=== PATIENT | male | born 1955 | race Caucasian/White ===

== ENCOUNTER 2016-11-08 08:20 | Emergency (ER) | payer BC, OTHER ==
[2016-11-08 08:45] VITALS: BP 139/88; PULSE 51; TEMP 99.5; BMI 29.5
--- NOTE | 2016-11-08 09:13 | PDOC ---
History of Present Illness - General Chief Complaint: Cold Symptoms Stated Complaint: COUGH Time Seen by Provider: 11/08/16 08:46 - History of Present Illness Initial Comments: 11/08/16 09:06 Chief complaint: Cough History of present illness: Patient developed chest congestion and cough approximately one week ago, originally with subjective sensation of fever and large amount of green sputum. He began Augmentin at that time, and his symptoms have improved. He is coughing less and his sputum is now clear. However, he states that his , who is a physician, listened to his chest and heard rales at the bases. Review of systems: Denies headache, sore throat, earache, chest pain, shortness of breath, abdominal pain, nausea, vomiting, diarrhea, visual or focal neurologic symptoms, urinary tract symptoms. Past medical history: Atrial fibrillation, elevated blood pressure. 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 No tachypnea or dyspnea Afebrile, vital signs normal including normal blood pressure, temperature 99.5, respiratory rate 16 and unlabored, and oxygen saturation 96% on room air ENT clear Neck supple without bruit mass or nodes Chest clear with full breath sounds throughout bilaterally. No wheezes rales or rhonchi CV S1 and S2 normal without murmur rub or gallop pulses full and symmetric no JVD or edema 55 and regular. Abdomen benign Neurological intact Skin clear, no rash, adequate turgor and mucous membranes Extremities no CCE Impression: Most likely URI with cough, improving. Possible bronchitis or mild pneumonia Plan: Since the lungs are clear now, the cough is improving, the sputum is clear , and there is no chest pain or shortness of breath, patient advised to finish his course of Augmentin and rest, take adequate fluids, stay out of the cold. Return to ER or see primary physician if the cough worsens, sputum returns, and there is chest pain or shortness of breath. Fully ambulatory and in no distress upon discharge with his to follow up as directed Past History - Past Medical History Allergies/Adverse Reactions: Allergies Allergy/AdvReac Type Severity Reaction Status Date / Time No Known Allergies Allergy Verified 11/08/16 08:22 Home Medications: Ambulatory Orders Amox-Tr/K Cl [Augmentin - 875Mg Tablet] 1 tab PO BID 11/08/16 Clonidine HCl 0.9 mg PO TID 11/08/16 Ramipril 5 mg PO BID 11/08/16 Warfarin Sodium [Coumadin] 7.5 mg PO HS 11/08/16 Cardiac Disorders: Yes (ATRIAL FIB) HTN: Yes - Psycho/Social/Smoking Cessation Hx Anxiety: No Suicidal Ideation: No Smoking History: Never smoked Have you smoked in the past 12 months: No Information on smoking cessation initiated: No Hx Alcohol Use: No Drug/Substance Use Hx: No Substance Use Type: None *Physical Exam - Vital Signs Last Vital Signs Temp Pulse Resp BP Pulse Ox 99.5 F 51 L 16 139/88 96 11/08/16 08:37 11/08/16 08:37 11/08/16 08:37 11/08/16 08:37 11/08/16 08:37 *DC/Admit/Observation/Transfer Diagnosis at time of Disposition: Upper respiratory infection with cough and congestion - Discharge Dispostion Disposition: HOME Condition at time of disposition: Stable Admit: No - Patient Instructions Printed Discharge Instructions: DI for Viral Upper Respiratory Infection -- Adult, DI for Acute Bronchitis Additional Instructions: Rest, adequate fluid intake, avoid the cold. Return to ER or see primary physician if the cough becomes worse, or if there is shortness of breath, chest pain, or high fever.
== END 2016-11-08 09:32 | disposition home or self-care (01) ==
LOC: FER 08:20
DX: J06.9 Acute upper respiratory infection, unspecified (principal); R05 Cough; R09.89 Other specified symptoms and signs involving the circulatory and respiratory systems; I48.91 Unspecified atrial fibrillation; I10 Essential (primary) hypertension; Z79.01 Long term (current) use of anticoagulants
CPT/HCPCS: 99281-25

== ENCOUNTER 2019-12-01 07:59 | Emergency (ER) | payer BC, OTHER ==
--- NOTE | 2019-12-01 08:16 | PDOC ---
History of Present Illness - General Chief Complaint: Vomiting/Diarrhea Stated Complaint: DIARRHEA,DEHYDRATION Time Seen by Provider: 12/01/19 08:05 - History of Present Illness Initial Comments: 12/01/19 08:14 64yo M physician hx HTN, AF on xarelto, depression, hearing impairment presents to the ED with diarrhea x2 days. Initially NBNB N/V Weds into Th. Since yesterday, vomiting abated but persistent constant diarrhea, non bloody. No abd pain. Decreased PO but able to drink fluids. No fevers or chills. Has only been taking his xarelto, has not been taking BP meds or depakote. Feels dehydrated prompting ED visit. 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 No tx tried. Denies dizziness, headache, CP, SOB, urinary sxs, LE edema. Past History - Past Medical History Allergies/Adverse Reactions: Allergies Allergy/AdvReac Type Severity Reaction Status Date / Time No Known Allergies Allergy Verified 12/01/19 08:01 Home Medications: Ambulatory Orders Clonidine HCl 0.9 mg PO HS 11/08/16 Ramipril 10 mg PO BID 11/08/16 Amlodipine Besylate [Norvasc -] 10 mg PO DAILY 12/01/19 Ciprofloxacin HCl 500 mg PO ASDIR 12/01/19 Ciprofloxacin [Cipro (Restricted To Id)] 250 mg PO ONCE 12/01/19 Clonidine HCl 0.6 mg PO BID 12/01/19 Divalproex [Depakote -] 500 mg PO HS 12/01/19 Labetalol HCl [Normodyne -] 200 mg PO BID 12/01/19 Perphenazine 2 mg PO HS 12/01/19 Rivaroxaban [Xarelto -] 20 mg PO HS 12/01/19 Cardiac Disorders: Yes (ATRIAL FIB) HTN: Yes - Psycho Social/Smoking Cessation Hx Smoking History: Never smoked Have you smoked in the past 12 months: No Hx Alcohol Use: No Drug/Substance Use Hx: No Substance Use Type: None Review of Systems - Review of Systems Comments:: 12/01/19 09:05 GENERAL/CONSTITUTIONAL: No fever or chills. No weakness. HEAD, EYES, EARS, NOSE AND THROAT: No change in vision. No ear pain or discharge. No sore throat. GASTROINTESTINAL: +nausea, vomiting, diarrhea, no constipation. GENITOURINARY: No dysuria, frequency, or change in urination. CARDIOVASCULAR: No chest pain or shortness of breath. RESPIRATORY: No cough, wheezing, or hemoptysis. MUSCULOSKELETAL: No joint or muscle swelling or pain. No neck or back pain. SKIN: No rash NEUROLOGIC: No headache, vertigo, loss of consciousness, or change in strength/ sensation. ENDOCRINE: No increased thirst. No abnormal weight change. HEMATOLOGIC/LYMPHATIC: No anemia, easy bleeding, or history of blood clots. ALLERGIC/IMMUNOLOGIC: No hives or skin allergy. *Physical Exam - Physical Exam 12/01/19 09:05 GENERAL: Awake, alert, and fully oriented, in no acute distress. Delilah pleasant HEAD: No signs of trauma EYES: PERRLA, EOMI, sclera anicteric, conjunctiva clear ENT: Oropharynx clear without exudates. Dry MM NECK: Normal ROM, supple, no lymphadenopathy, JVD, or masses LUNGS: Breath sounds equal, clear to auscultation bilaterally. No wheezes, and no crackles HEART: Tachy, irregular, normal S1 and S2, no murmurs, rubs or gallops ABDOMEN: Soft, nontender, normoactive bowel sounds. No guarding, no rebound. No masses EXTREMITIES: Normal range of motion, no edema. No clubbing or cyanosis. No cords, erythema, or tenderness NEUROLOGICAL: Normal speech, cranial nerves intact, equal strength and sensation b/l SKIN: Warm, Dry, normal turgor, no rashes or lesions noted. Heart Score/ECG Review #1 12/01/19 09:06 Twelve-lead EKG was performed and reviewed by me. Atrial fibrillation with rapid ventricular response, rate 112. Normal axis. Wavy baseline but, no gross ST elevations or TWI ED Treatment Course - LABORATORY CBC & Chemistry Diagram: 12/01/19 08:35 12/01/19 08:35 Medical Decision Making - Medical Decision Making 12/01/19 09:07 64-year-old male presents emergency department with nausea vomiting and diarrhea , concern for dehydration. Of note, patient has not been taking any of his blood pressure medications. Vitals remarkable for tachycardia to 118, EKG in A. fib with rapid ventricular response. On exam, patient with dry mucous membranes. No abdominal tenderness to palpation. Plan will be to check labs for any metabolic disarray, hydrate with a liter of fluids, and likely start some of patient's blood pressure medications, specifically beta-jaqueline. Will reassess. 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 I answered all of the patient's questions. The patient was satisfied with the care received and felt comfortable with the discharge plan and treatment plan. The patient will call their primary care physician within 24 hours to arrange follow-up and will return to the Emergency Department with any new, persistent or worsening symptoms. Discharge - Discharge Information Problems reviewed: Yes Clinical Impression/Diagnosis: Diarrhea, Dehydration, Tachycardia, Gastroenteritis Condition: Improved Disposition: HOME - Admission No - Follow up/Referral Referrals: Andrea Fernandez MD [Primary Care Provider] - - Patient Discharge Instructions Patient Printed Discharge Instructions: DI for Dehydration -- Adult Additional Instructions: You presented today with dehydration We checked your bloodwork and found some of your electrolytes were low ( magnesium, calcium) We gave you some intravenous fluids for hydration. At home, continue to drink plenty of fluids such as gatorade, water to stay hydrated Take your home medications as prescribed Return to the emergency department if you have any new, worsening, or concerning symptoms It was a pleasure to take care of you today. We hope you feel better soon! - Post Discharge Activity
[2019-12-01 08:19] VITALS: BMI 35.2
[2019-12-01] MEDS ORDERED: SODIUM CHLORIDE 1,000 ML IV STA (08:21)
[2019-12-01 09:03] LABS: BASO % 0.2 % (0-2.0); EOS % 0.1 % (0-4.5); HEMATOCRIT 47.7 % (35.4-49); HEMOGLOBIN 15.6 GM/dl (11.7-16.9); LYMPH % 10.7 % (8-40); MCH 29.6 pg (25.7-33.7); MCHC 32.8 g/dl (32.0-35.9); MEAN CELL VOLUME 90.3 fl (80-96); MEAN PLT VOLUME 8.2 fl (7.5-11.1); PLATELET COUNT 195 K/MM3 (134-434); RBC 5.28 M/mm3 (4.00-5.60); RDW 13.2 % (11.9-15.9); WHITE BLOOD COUNT 12.6 K/mm3 (4.0-10.8)
[2019-12-01 09:06] LABS: INR 1.79 (0.82-1.09); PROTHROMBIN TIME (PATIENT) 19.8 SEC (10.2-13.0)
[2019-12-01 09:11] LABS: ALBUMIN 3.7 g/dl (3.4-5.0); BILIRUBIN,TOTAL 0.7 mg/dl (0.2-1); CREATININE 1.2 mg/dl (0.55-1.3); MAGNESIUM 1.4 mg/dL (1.8-2.4); POTASSIUM 3.5 mmol/L (3.5-5.1); TOT PROT 6.7 g/dl (6.4-8.2)
[2019-12-01] MEDS ORDERED: LABETALOL HCL 200 MG TABLET (FP) PO ONE (09:15)
[2019-12-01] MEDS ORDERED: LABETALOL HCL 200 MG TABLET (FP) ONE ×2 (09:17→09:20)
[2019-12-01] MEDS ORDERED: MAGNESIUM OXIDE 400 MG TABLET (FP) PO ONE (10:33)
[2019-12-01 10:36] LABS: EPITHELIAL CELLS RARE /hpf
[2019-12-01 10:37] LABS: URINE MUCUS 1+
[2019-12-01] MEDS ORDERED: cloNIDine HCL 0.1 MG TABLET PO ONE (11:37)
[2019-12-01] MEDS ORDERED: cloNIDine HCL 0.1 MG TABLET ONE (11:41)
[2019-12-01 13:17] VITALS: BP 121/89; PULSE 105; TEMP 98.5
--- NOTE | 2019-12-02 10:36 | EKG ---
Test Reason : Blood Pressure : / mmHG Vent. Rate : 112 BPM Atrial Rate : 105 BPM P-R Int : 000 ms QRS Dur : 080 ms QT Int : 316 ms P-R-T Axes : 000 004 -23 degrees QTc Int : 431 ms POOR DATA QUALITY, INTERPRETATION MAY BE ADVERSELY AFFECTED ATRIAL FIBRILLATION WITH RAPID VENTRICULAR RESPONSE NONSPECIFIC ST AND T WAVE ABNORMALITY ABNORMAL ECG NO PREVIOUS ECGS AVAILABLE Confirmed by PENELOPE URBINA MD ([id number]) on 12/02/2019 10:35:51 AM Referred By: Confirmed By:PENELOPE URBINA MD
== END 2019-12-01 13:57 | disposition home or self-care (01) ==
LOC: FER 07:59
PROC: 3E0337Z Introduction of Electrolytic and Water Balance Substance into Peripheral Vein, Percutaneous Approach (ICD-10-PCS; principal; 2019-12-01)
DX: R00.0 Tachycardia, unspecified (principal); K52.9 Noninfective gastroenteritis and colitis, unspecified; E86.0 Dehydration; F32.9 Major depressive disorder, single episode, unspecified; I10 Essential (primary) hypertension
CPT/HCPCS: 36415; 80053; 81003; 81015; 83735; 85025; 85610; 85730; 87086; 93005; 99284-25; J0735; J7030

== ENCOUNTER 2022-04-03 16:59 | Emergency (ER) | payer OTHER ==
[2022-04-03] MEDS ORDERED: ACETAMINOPHEN 325 MG TABLET (FP) PO ONE (17:30)
[2022-04-03 17:37] VITALS: TEMP 97.9; BMI 34.4
[2022-04-03] MEDS ORDERED: LACTATED RINGERS SOLUTION 1000 ML INFUS.BAG IV ONE (17:51)
[2022-04-03] MEDS ORDERED: METOCLOPRAMIDE HCL INJECTION 10 MG/2 ML VIAL IVPUSH ONE (17:51)
[2022-04-03] MEDS ORDERED: METOCLOPRAMIDE HCL INJECTION 10 MG/2 ML VIAL ONE (18:33)
[2022-04-03] MEDS ORDERED: ACETAMINOPHEN 325 MG TABLET (FP) ONE (18:33)
[2022-04-03 19:06] VITALS: BP 169/107; PULSE 64
[2022-04-03 19:14] LABS: HEMATOCRIT 47.2 % (35.4-49); HEMOGLOBIN 16.7 G/dL (11.7-16.9); MCH 30.3 pg (25.7-33.7); MCHC 35.3 g/dl (32.0-35.9); MEAN CELL VOLUME 85.9 fl (80-96); MEAN PLT VOLUME 8.7 fl (7.5-11.1); PLATELET COUNT 166.9 10^3/uL (134-434); RBC 5.49 10^6/uL (4.00-5.60); RDW 15.3 % (11.9-15.9); WHITE BLOOD COUNT 7.1 10^3/uL (4.0-10.8)
[2022-04-03 19:20] LABS: ALBUMIN 4.2 g/dl (3.4-5.0); BILIRUBIN,TOTAL 0.8 mg/dl (0.2-1); CALCIUM 9.1 mg/dl (8.5-10)
== END 2022-04-03 20:20 | disposition home or self-care (01) ==
LOC: FER 16:59
DX: I10 Essential (primary) hypertension (principal)
CPT/HCPCS: 36415; 71046-TC-FY; 80053; 84484; 85025; 93005; 99285-25; C9803-CS; U0003; U0005

== ENCOUNTER 2023-01-17 14:42 | Emergency (ER) | payer OTHER ==
[2023-01-17 14:57] VITALS: BP 119/79; PULSE 82; RESP 18; BMI 34.4
== END 2023-01-17 16:55 | disposition home or self-care (01) ==
LOC: FER 14:42
DX: S93.401A Sprain of unspecified ligament of right ankle, initial encounter (principal); W10.8XXA Fall (on) (from) other stairs and steps, initial encounter; Y93.01 Activity, walking, marching and hiking
CPT/HCPCS: 73590-TC-RT-FY; 73610-TC-RT-FY; 73630-TC-RT-FY; 99283-25

== ENCOUNTER 2023-01-20 22:40 | Emergency (ER) | payer OTHER ==
[2023-01-20 22:48] VITALS: BP 140/88; PULSE 72; RESP 18; TEMP 98.6; BMI 29.6
[2023-01-21 02:16] LABS: BASO % 0.3 % (0-2.0); EOS % 0.2 % (0-4.5); HEMATOCRIT 37.6 % (35.4-49); HEMOGLOBIN 12.9 GM/dL (11.7-16.9); LYMPH % 20.6 % (8-40); MCH 28.5 pg (25.7-33.7); MCHC 34.2 g/dl (32.0-35.9); MEAN CELL VOLUME 83.4 fl (80-96); MEAN PLT VOLUME 7.8 fl (7.5-11.1); MONO % 11.3 % (3.8-10.2); NEUT % 67.6 % (42.8-82.8); PLATELET COUNT 202 10^3/uL (134-434); RBC 4.51 M/mm3 (4.00-5.60); RDW 13.4 % (11.9-15.9); WHITE BLOOD COUNT 8.3 K/mm3 (4.0-10.0)
[2023-01-21 02:34] LABS: CHLORIDE 104 mmol/L (98-107); SODIUM 139 mmol/L (136-145)
[2023-01-21 02:37] LABS: ALBUMIN 2.8 g/dl (3.4-5.0); BLOOD UREA NITROGEN 22.7 mg/dL (7-18); CO2 27 mmol/L (21-32); GLUCOSE,RANDOM 113 mg/dL (74-106)
[2023-01-21 02:40] LABS: CREATININE 0.9 mg/dL (0.55-1.3); SGOT/AST 34 U/L (15-37); SGPT/ALT 29 U/L (13-61)
[2023-01-21 02:42] LABS: BILIRUBIN,TOTAL 0.9 mg/dL (0.2-1); LDH 178 U/L (87-246)
[2023-01-21 02:43] LABS: ALK PHOS 44 U/L (45-117)
[2023-01-21 03:21] LABS: ANION GAP 9 MMOL/L (8-16)
== END 2023-01-21 06:33 | disposition home or self-care (01) ==
LOC: FER 22:40
DX: B34.9 Viral infection, unspecified (principal)
CPT/HCPCS: 36415; 71045-TC-FY; 80053; 82550; 82553; 83605; 83615; 84436; 84443; 84479; 84484; 85025; 85651; 86038; 86140; 87040; 87086; 93005; 99285-25

== ENCOUNTER 2024-04-26 15:01 | Inpatient (IN) | payer OTHER ==
[2024-04-26] MEDS ORDERED: VANCOMYCIN 500 MG VIAL (RESTRICTED TO ID ONLY) ONE (15:36)
[2024-04-26] MEDS ORDERED: ACETAMINOPHEN INJECTION 100 ML IVPB ONE (15:37)
[2024-04-26] MEDS ORDERED: VANCOMYCIN 1,000 MG VIAL (RESTRICTED TO ID ONLY) ONE (15:37)
[2024-04-26] MEDS: ACETAMINOPHEN 1000 MG/100 ML BAG IVPB ONE (16:10)
[2024-04-26 16:16] LABS: INR 1.32 (0.83-1.09); PROTHROMBIN TIME (PATIENT) 14.9 SEC (9.7-13.0)
[2024-04-26 16:19] LABS: ACTIVATED PTT 39.3 SECONDS (25.2-36.5)
[2024-04-26 16:24] LABS: ALBUMIN 4.5 g/dl (3.4-5.0); BILIRUBIN,TOTAL 1.3 mg/dl (0.2-1); CALCIUM 9.3 mg/dl (8.5-10.1); CREATININE 1.3 mg/dl (0.6-1.3); TOT PROT 7.5 g/dl (6.4-8.2)
[2024-04-26 16:27] LABS: HEMATOCRIT 48.4 % (35.4-49); HEMOGLOBIN 16.1 G/dL (11.7-16.9); MCH 29.3 pg (25.7-33.7); MCHC 33.3 g/dl (32.0-35.9); MEAN PLT VOLUME 8.6 fl (7.5-11.1); PLATELET COUNT 186.3 10^3/uL (134-434); RDW 14.2 % (11.9-15.9); WHITE BLOOD COUNT 12.5 10^3/uL (4.0-10.8)
[2024-04-26 16:28] LABS: POTASSIUM 4.5 mmol/L (3.5-5.1)
[2024-04-26] MEDS: VANCOMYCIN HCL 1,500 MG in DEXTROSE 5%-WATER - 500 ML IVPB ONE (16:40)
[2024-04-26] MEDS: SODIUM CHLORIDE 1,000 ML IV STA (16:40)
[2024-04-26 16:51] LABS: PLATELET ESTIMATE ADEQUATE
[2024-04-26 17:13] LABS: ERYTHROCYTE SEDIMENTATION RATE 43 mm/hr (0-20)
[2024-04-26] MEDS ORDERED: PIPERACILLIN/TAZOB 4.5 GM 4.5 GM/100 ML BAG IVPB ONE (18:22)
[2024-04-26 18:32] LABS: LACTIC ACID 2.4 mmol/L (0.4-2.0)
[2024-04-26 18:48] VITALS: BMI 33.7
[2024-04-26] MEDS: LACTATED RINGERS SOLUTION 1,000 ML/1,000 ML INFUS.BAG IV SCH (19:56)
[2024-04-26] MEDS: PIPERACILLIN/TAZOB 4.5 GM 4.5 GM in DEXTROSE 5%-WATER 100 ML IVPB ONE (19:56)
[2024-04-26] MEDS: RIVAROXABAN 20 MG TABLET PO SCH (23:00)
[2024-04-26] MEDS: cloNIDine HCL 0.1 MG TABLET PO SCH (23:00)
[2024-04-26] MEDS: RAMIPRIL 5 MG CAPSULE PO SCH (23:00)
[2024-04-26] MEDS: LABETALOL HCL 200 MG TABLET (FP) PO SCH (23:00)
[2024-04-27] MEDS: PERPHENAZINE 2 MG TABLET PO SCH (00:23)
[2024-04-27] MEDS ORDERED: PIPERACILLIN/TAZOB 3.375 GM 3.375 GM in DEXTROSE 5%-WATER - 50 ML IVPB SCH (04:00)
[2024-04-27] MEDS: PIPERACILLIN/TAZOB 3.375 GM 3.375 GM in DEXTROSE 5%-WATER - 50 ML IVPB SCH (04:08)
[2024-04-27] MEDS: CLONIDINE HCL 0.3 MG PO SCH (05:15)
[2024-04-27 08:42] LABS: CALCIUM 8.3 mg/dl (8.5-10.1); CREATININE 1.2 mg/dl (0.6-1.3); MAGNESIUM 1.4 mg/dL (1.8-2.4); PHOSPHOROUS 2.8 (2.5-4.9)
[2024-04-27 08:46] LABS: POTASSIUM 2.9 mmol/L (3.5-5.1)
[2024-04-27 09:30] LABS: BASO % 0.6 % (0-2.0); EOS % 0.2 % (0-4.5); HEMATOCRIT 39.9 % (35.4-49); HEMOGLOBIN 13.6 GM/dL (11.7-16.9); LYMPH % 12.7 % (8-40); MCH 29.4 pg (25.7-33.7); MEAN CELL VOLUME 86.4 fl (80-96); MEAN PLT VOLUME 8.5 fl (7.5-11.1); MONO % 9.3 % (3.8-10.2); NEUT % 77.2 % (42.8-82.8); PLATELET COUNT 188 10^3/uL (134-434); RBC 4.61 M/mm3 (4.00-5.60); RDW 13.5 % (11.9-15.9); WHITE BLOOD COUNT 9.5 K/mm3 (4.0-10.0)
[2024-04-27] MEDS: cloNIDine HCL 0.1 MG TABLET PO SCH ×3 (10:00→21:06)
[2024-04-27 10:03] LABS: LACTIC ACID 2.1 mmol/L (0.4-2.0)
[2024-04-27] MEDS ORDERED: ACETAMINOPHEN 1000 MG/100 ML BAG IVPB PRN (10:08)
[2024-04-27] MEDS: VANCOMYCIN/WATER 1250 MG 1,250 MG/250 ML BAG IVPB SCH (10:17)
[2024-04-27] MEDS: POTASSIUM CHLORIDE ORAL LIQUID 20 MEQ/15 ML PO ONE ×2 (10:17→19:50)
[2024-04-27] MEDS: COLCHICINE 0.6 MG CAP PO SCH (11:22)
[2024-04-27] MEDS: CEFTRIAXONE 2 GM in DEXTROSE 5%-WATER 100 ML IVPB SCH (12:05)
[2024-04-27] MEDS: PANTOPRAZOLE 40 MG TABLET PO SCH (12:58)
[2024-04-27] MEDS: INDOMETHACIN 25 MG CAPSULE PO SCH (12:58)
[2024-04-27] MEDS ORDERED: cloNIDine HCL 0.1 MG TABLET PO SCH ×3 (16:00)
[2024-04-27] MEDS: MAGNESIUM SULFATE IN WATER 2 GM/50 ML IVPB IVPB ONE (18:23)
[2024-04-27] MEDS: MAGNESIUM OXIDE 400 MG TABLET (FP) PO ONE (21:04)
[2024-04-27] MEDS: RAMIPRIL 5 MG CAPSULE PO SCH (21:04)
[2024-04-27] MEDS: LABETALOL HCL 200 MG TABLET (FP) PO SCH (21:05)
[2024-04-28 08:57] LABS: ALBUMIN 3.6 g/dl (3.4-5.0); ALK PHOS 30 U/L (45-117); ANION GAP 11 mmol/L (4-13); BILIRUBIN,TOTAL 0.5 mg/dl (0.2-1); CALCIUM 8.6 mg/dl (8.5-10.1); CHLORIDE 104 mmol/L (98-107); CO2 28 mmol/L (21-32); GLUCOSE,RANDOM 148 mg/dl (74-106); MAGNESIUM 1.8 mg/dL (1.8-2.4); SGOT/AST 28 U/L (15-37); SGPT/ALT 25 U/L (7-52); SODIUM 143 mmol/L (136-145); TOT PROT 5.6 g/dl (6.4-8.2)
[2024-04-28 09:44] LABS: BASO % 0.6 % (0-2.0); EOS % 2.2 % (0-4.5); HEMATOCRIT 39.6 % (35.4-49); HEMOGLOBIN 13.7 GM/dL (11.7-16.9); LYMPH % 18.7 % (8-40); MCH 29.5 pg (25.7-33.7); MCHC 34.6 g/dl (32.0-35.9); MEAN CELL VOLUME 85.4 fl (80-96); MEAN PLT VOLUME 8.3 fl (7.5-11.1); MONO % 10.4 % (3.8-10.2); NEUT % 68.1 % (42.8-82.8); PLATELET COUNT 204 10^3/uL (134-434); RBC 4.63 M/mm3 (4.00-5.60); RDW 13.6 % (11.9-15.9); WHITE BLOOD COUNT 6.8 K/mm3 (4.0-10.0)
[2024-04-28] MEDS: POTASSIUM CHLORIDE TABS 20 MEQ TABLET.ER (FP) PO ONE (10:01)
[2024-04-28] MEDS: KCL 10 MEQ IVPB 10 MEQ/100 ML INFUS.BAG IVPB SCH (10:07)
[2024-04-28] MEDS: POTASSIUM CHLORIDE ORAL LIQUID 20 MEQ/15 ML PO ONE ×2 (10:50→14:50)
[2024-04-28 11:52] VITALS: BP 141/89; PULSE 83; RESP 17; TEMP 97.7
== END 2024-04-28 18:20 | disposition home or self-care (01) | DRG 603 ==
LOC: FER 15:01 → FM/S 17:10
PROVIDERS: ADMIT Internal Medicine; ATTEND Student in an Organized Health Care Education/Training Program
DX: L03.116 Cellulitis of left lower limb (principal); M10.9 Gout, unspecified; F41.8 Other specified anxiety disorders; I48.91 Unspecified atrial fibrillation; I10 Essential (primary) hypertension; E87.6 Hypokalemia; R50.9 Fever, unspecified; D72.829 Elevated white blood cell count, unspecified; R73.03 Prediabetes
CPT/HCPCS: 0241U-QW; 36415; 73630-TC-LT; 80048; 80053; 81003; 81015; 83036; 83605; 83735; 83880; 84100; 84550; 85025; 85027; 85610; 85651; 85730; 86140; 87040; 87086; 93005; 93306-TC; 93971-TC; 97116-GP; 99285-25; J0131